=== PATIENT | female | born 1950 | race Caucasian/White ===

== ENCOUNTER 2021-02-07 18:31 | Emergency (ER) | payer MEDICARE ==
[~2021-02-07] VITALS: Ht 157.5 cm; Wt 71.2 kg
[2021-02-07] MEDS ORDERED: DEXAMETHASONE SOD PHOS 10 MG/1 ML VIAL IV NR (19:00)
== END 2021-02-07 21:17 | disposition home or self-care (01) ==
LOC: ER 18:35
DX: R47.02 Dysphasia (principal); I10 Essential (primary) hypertension; E11.9 Type 2 diabetes mellitus without complications; E78.5 Hyperlipidemia, unspecified; K21.9 Gastro-esophageal reflux disease without esophagitis
CPT/HCPCS: 70360; 99284; J1100